=== PATIENT | male | born 1945 | race Two or more races ===

== ENCOUNTER 2021-06-07 12:21 | Emergency (ER) | payer MEDICARE, MEDICAID ==
[~2021-06-07] VITALS: Ht 167.6 cm; Wt 68.2 kg
[2021-06-07 12:28] VITALS: BP 141/77
[2021-06-07] MEDS ORDERED: BACITRACIN 0.9 GM PACKET OINTMENT TP ONE (12:45)
[2021-06-07] MEDS ORDERED: LIDOCAINE 1% 10 ML VIAL SQ ONE (12:45)
[2021-06-07] MEDS ORDERED: PERTUSS(ACELL),DIPH,TET VAC/PF 0.5 ML SYRINGE IM. ONE (12:45)
== END 2021-06-07 13:05 | disposition home or self-care (01) ==
LOC: EMS 12:28
DX: S61.216A Laceration without foreign body of right little finger without damage to nail, initial encounter (principal); I10 Essential (primary) hypertension; F17.210 Nicotine dependence, cigarettes, uncomplicated; W45.8XXA Other foreign body or object entering through skin, initial encounter; Y93.89 Activity, other specified; Y92.89 Other specified places as the place of occurrence of the external cause; Y99.8 Other external cause status
CPT/HCPCS: 12002; 90471; 90715; 99283; J3490

== ENCOUNTER 2021-06-24 11:27 | Emergency (ER) | payer MEDICARE, MEDICAID ==
[~2021-06-24] VITALS: Ht 165.1 cm; Wt 63.6 kg
[2021-06-24] MEDS ORDERED: LISI-893 PO (11:36)
[2021-06-24] MEDS ORDERED: CHOL400T56 PO (11:36)
[2021-06-24 13:20] LABS: BASOPHILS % (AUTO) 1.1 % (0.0-2.0); EOSINOPHILS % (AUTO) 2.4 % (1.0-6.0); HEMOGLOBIN 14.9 g/dL (13.5-17.5); LYMPHOCYTES # (AUTO) 2.3 K/uL (1.0-4.8); LYMPHOCYTES % (AUTO) 22.8 % (22.0-44.0); MEAN CORPUSCULAR HEMOGLOBIN 32.3 pg (26.0-34.0); MEAN CORPUSCULAR HGB CONC 33.1 G/dL (31.0-37.0); MEAN CORPUSCULAR VOLUME 97 fL (80-100); MONOCYTES # (AUTO) 0.5 K/uL (0.1-1.0); MONOCYTES % (AUTO) 5.2 % (2.0-9.0); NEUTROPHILS # (AUTO) 6.8 K/uL (1.8-7.7); NEUTROPHILS % (AUTO) 68.5 % (40.0-70.0); PLATELET COUNT (AUTO) 140 K/uL (150-450); RED BLOOD CELL COUNT(AUTO) 4.63 MIL/uL (4.50-5.90); RED CELL DISTRIBUTION WIDTH 13.2 % (11.5-14.5)
[2021-06-24 13:34] LABS: CALCIUM, TOTAL 8.9 mg/dL (8.8-10.5); CREATININE 1.25 mg/dL (0.60-1.30); POTASSIUM 4.5 mmol/L (3.5-5.1)
[2021-06-24 13:40] LABS: BILIRUBIN,TOTAL 0.4 mg/dL (0.1-1.0); C-REACTIVE PROTEIN QUANT 0.68 mg/dL (0.00-0.30); TOTAL PROTEIN, SERUM 7.8 g/dL (6.4-8.2)
[2021-06-24 14:29] LABS: ERYTHROCYTE SEDIMENTATION RATE 10 MM/HR (0-15)
[2021-06-24 14:52] VITALS: BP 134/88
== END 2021-06-24 15:16 | disposition home or self-care (01) ==
LOC: EMS 11:27
DX: L08.9 Local infection of the skin and subcutaneous tissue, unspecified (principal); I10 Essential (primary) hypertension; F17.210 Nicotine dependence, cigarettes, uncomplicated; Z79.899 Other long term (current) drug therapy
CPT/HCPCS: 80053; 85025; 85651; 86140; 99284

== ENCOUNTER 2025-10-01 15:08 | Emergency (ER) | payer MEDICARE, MEDICAID ==
[~2025-10-01] VITALS: Ht 162.6 cm; Wt 69.5 kg
[~2025-10-01 15:08] MED LIST: CHOL400T56 PO; LISI-893 PO
[2025-10-01 15:11] VITALS: BP 154/64; PULSE 69; RESP 18; TEMP 97.9; O2SAT 95
[2025-10-01] MEDS ORDERED: AMOX-457 PO (15:53)
[2025-10-01] MEDS: AMOX TR/POT CLAV 875 MG/125 MG TABLET PO ONE (16:50)
== END 2025-10-01 17:00 | disposition home or self-care (01) ==
LOC: EMS 15:09
DX: H66.91 Otitis media, unspecified, right ear (principal); I10 Essential (primary) hypertension; Z79.899 Other long term (current) drug therapy
CPT/HCPCS: 99283